=== PATIENT | female | born 1985 | race Caucasian/White ===

== ENCOUNTER → 2021-09-09 10:17 | Outpatient (BNVA) | payer BC, SELFPAY | PROVIDERS: PCP Nurse Practitioner Family; Visit Provider Internal Medicine | DX: R76.8 Other specified abnormal immunological findings in serum (principal); R21 Rash and other nonspecific skin eruption; M25.50 Pain in unspecified joint; E03.9 Hypothyroidism, unspecified; Z11.59 Encounter for screening for other viral diseases | CPT/HCPCS: 80053; 81001; 81003; 82164; 82550; 82607; 82728; 82784; 83516; 83540; 83735; 84439; 84443; 85025; 85651; 86140; 86160; 86200; 86704; 86803; 87086; 87340 ==

== ENCOUNTER → 2022-06-13 10:34 | Outpatient (BNVA) | payer BC, SELFPAY | PROVIDERS: PCP Nurse Practitioner Family; Visit Provider Internal Medicine | DX: L65.9 Nonscarring hair loss, unspecified (principal); R76.8 Other specified abnormal immunological findings in serum; M25.50 Pain in unspecified joint; R21 Rash and other nonspecific skin eruption | CPT/HCPCS: 36415; 80053; 81003; 85025; 85651; 86140 ==